=== PATIENT | male | born 1995 | race Caucasian/White ===

== ENCOUNTER 2020-04-04 05:19 | Emergency (ER) | payer SELFPAY ==
[~2020-04-04] VITALS: Ht 167.6 cm; Wt 92.8 kg
[2020-04-04] MEDS ORDERED: AMOX500C PO (05:36)
[2020-04-04] MEDS ORDERED: CIPR7.5D RIGHT EAR (05:36)
--- NOTE | 2020-04-04 05:39 | PHYS DOC ---
Adult General Chief Complaint Chief Complaint: EARACHE/EAR PAIN HPI HPI Patient is a 24-year-old male who presents with 3 days of right ear pain. States has had multiple ear infections over the course of his life but had not had one in a while. States that 3 days ago he began to have pain in his right e ar, which felt like an ear infection got some rear-wkt-fexxoji eardrops from [employer]. States he started using them daily. States that this did not help and seem to make his pain worse, 6 out of 10, sharp in nature. Denies fevers, pain or trouble swallowing, chest pain, shortness of breath, abdominal pain, nausea, vomiting. Review of Systems Review of Systems Review of systems otherwise unremarkable except noted in HPI Current Medications Current Medications Current Medications Medications (Trade) Dose Ordered Sig/Carol Start Time Stop Time Status Last Admin Dose Admin Amoxicillin (Amoxil) 1,000 mg 1X ONCE 04/04/20 05:30 04/04/20 05:31 UNV Physical Exam Physical Exam Constitutional: Well developed, well nourished, no acute distress, non-toxic appearance. [] HENT: Normocephalic, atraumatic, bilateral external ears normal, oropharynx moist, no oral exudates, nose normal. Right ear with erythematous and bulging tympanic membrane with erythema and tenderness of the external ear canal suggestive of otitis externa [] Eyes: conjunctiva normal, no discharge. [] Neck: Normal range of motion, no tenderness, supple, no stridor. [] Cardiovascular:Heart rate regular rhythm, no murmur [] Neurologic: Alert and oriented X 3, normal motor function, normal sensory function, no focal deficits noted. [] Psychologic: Affect normal, judgement normal, mood normal. [] EKG EKG [] Radiology/Procedures Radiology/Procedures [] Heart Score Risk Factors: Risk Factors: DM, Current or recent (<one month) smoker, HTN, HLP, family history of CAD, obesity. Risk Scores: Risk Factors: DM, Current or recent (<one month) smoker, HTN, HLP, family history of CAD, obesity. Course & Med Decision Making Course & Med Decision Making Patient is a 24-year-old male who presents with right ear pain for 3 days Vital signs not concerning. Physical exam noted above. Physical exam suggestive of both otitis media and otitis externa. Advised patient to quit putting ihlg-dhp-[id number] eardrops in his ears. Started on amoxicillin in the ED and given pain management. Advised a course of both amoxicillin and Ciprodex eardrops and follow-up with primary care physician. Given primary care physicians in the area. Gave strict return precautions to per the ED. Family grateful, verbalized understanding and agreed with plan of discharge. [] Dragon Disclaimer Dragon Disclaimer This electronic medical record was generated, in whole or in part, using a voice recognition dictation system. Departure Departure: Impression: Primary Impression: Otitis media Additional Impression: Otitis externa Disposition: DC HOME SELF CARE/HOMELESS Condition: IMPROVED Patient Instructions: Otitis Externa, Otitis Media, Adult Additional Instructions: Please read all the attached information. Please take your oral antibiotics and usual antibiotic eardrops as prescribed and until they are gone. Please call a primary care physician from the list given to you to establish care with a primary care physician as soon as you can for follow-up. Please come back to [facility] emergency department immediately with new or concerning symptoms or if you cannot get in to see a primary care physician in a week to 10 days for follow-up if need be. Scripts Ciprofloxacin Hcl/Dexameth (CIPRODEX OTIC SUSPENSION) 7.5 Ml Drops.susp 3 DROP RIGHT EAR BID for otitis externa, #7.5 ML Prov: MARCE FRY MD 04/04/20 Amoxicillin (AMOXICILLIN) 500 Mg Capsule 2 CAP PO TID for otitis media for 7 Days, #42 CAP Prov: MARCE FRY MD 04/04/20 Problem Qualifiers MARCE FRY MD Apr 04, 2020 05:39
[2020-04-04] MEDS ORDERED: IBUPROFEN 600 MG TABLET. PO ONE (06:00)
[2020-04-04] MEDS ORDERED: AMOXICILLIN 250 MG CAPSULE PO ONE (06:00)
[2020-04-04] MEDS ORDERED: oxyCODONE/APAP 5/325 1 TAB TABLET PO ONE (06:00)
[2020-04-04 06:02] VITALS: BP 130/64
== END 2020-04-04 06:02 ==
LOC: ER 05:19
DX: H65.91 Unspecified nonsuppurative otitis media, right ear (principal); H60.91 Unspecified otitis externa, right ear
CPT/HCPCS: 99284